=== PATIENT | female | born 1965 | race Caucasian/White ===

== ENCOUNTER → 2016-09-08 | Outpatient (CLI) | payer BC ==
[2015-10-21 14:20] VITALS: BP 100/61
--- NOTE | 2016-09-08 16:31 | KCIC ---
PROCEDURE Left wrist 3 views. HISTORY Left wrist pain. FINDINGS No fractures are identified. Joint spaces and alignment are maintained for patient age. There is minimal osteoarthritis at the 1st carpometacarpal joint. IMPRESSION - Minimal degenerative changes for patient age. Electronically signed by: José Cuevas (Sep 08, 2016 16:30:03)
== END | disposition home or self-care (01) ==
LOC: KCIC 15:51
PROVIDERS: ATTEND Family Medicine
DX: M18.12 Unilateral primary osteoarthritis of first carpometacarpal joint, left hand (principal)
CPT/HCPCS: 73110

== ENCOUNTER 2016-11-15 16:15 | Emergency (ER) | payer BC ==
[2016-11-15 16:38] VITALS: BP 105/64
--- NOTE | 2016-11-15 17:44 | PHYS DOC ---
Past Medical History Past Medical History: GERD Past Surgical History: Appendectomy Alcohol Use: None Drug Use: None Adult General Chief Complaint Chief Complaint: RIB PAIN [facility] HPI Patient is a 51 year old female with history of acid reflex who presents today with moderate right lateral rib pain that began a week and a half ago. Patient denies any trauma. She states she does a job where she was lifting and moving objects. She states she was seen by the PCP and was diagnosed with muscle strain. She states the pain has not improved, she states the PCP requested her to come to the ED for pain is not improving to get x-rays of her ribs. Patient denies any new injuries. She states the PCP put her on some pain medicine with ibuprofen in it and is not working. Off note she is allergic to aspirin and codeine. Review of Systems Review of Systems Constitutional: Denies fever or chills [] Eyes: Denies change in visual acuity, redness, or eye pain [] HENT: Denies nasal congestion or sore throat [] Respiratory: Right lateral rib pain Cardiovascular: No additional information not addressed in HPI [] GI: Denies abdominal pain, nausea, vomiting, bloody stools or diarrhea [] : Denies dysuria or hematuria [] Musculoskeletal: Denies back pain or joint pain [] Integument: Denies rash or skin lesions [] Neurologic: Denies headache, focal weakness or sensory changes [] Endocrine: Denies polyuria or polydipsia [] Allergies Allergies Allergies Coded Allergies Type Severity Reaction Last Updated Verified aspirin Allergy Unknown 10/21/15 Yes codeine Allergy Unknown 10/21/15 Yes Physical Exam Physical Exam Constitutional: Well developed, well nourished, no acute distress, non-toxic appearance. [] HENT: Normocephalic, atraumatic, bilateral external ears normal, oropharynx moist, no oral exudates, nose normal. [] Eyes: PERRLA, EOMI, conjunctiva normal, no discharge. [] Neck: Normal range of motion, no tenderness, supple, no stridor. [] Cardiovascular:Heart rate regular rhythm, no murmur [] Lungs & Thorax: Bilateral breath sounds clear to auscultation. Chest area with no obvious deformity, no ecchymosis anywhere on the chest area. Tenderness diffusely on palpation of the right lateral ribs mid axillary line approximately ribs 4,5, 6 Abdomen: Bowel sounds normal, soft, no tenderness, no masses, no pulsatile masses. [] Skin: Warm, dry, no erythema, no rash. [] Back: No tenderness, no CVA tenderness. [] Extremities: No tenderness, no cyanosis, no clubbing, ROM intact, no edema. [] Neurologic: Alert and oriented X 3, normal motor function, normal sensory function, no focal deficits noted. [] Psychologic: Affect normal, judgement normal, mood normal. [] Current Patient Data Vital Signs Vital Signs Date Time Temp Pulse Resp B/P Pulse Ox O2 Delivery O2 Flow Rate FiO2 11/15/16 16:38 97.7 73 16 100 Room Air 97.7 EKG EKG [] Radiology/Procedures Radiology/Procedures [] Course & Med Decision Making Course & Med Decision Making Pertinent Labs and Imaging studies reviewed. (See chart for details) Patient is in the ED complaining of rib pain for 1-1/2 weeks. 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 She was seen by the PCP and was diagnosed with muscle strain. She presents today stating the PCP requested her to come to the ED to get x-rays if her pain is not improving, right rib/chest PA x-rays interpreted by Dr. Diego and negative for any acute findings. Patient was discharged with Robaxin. She was provided a note for work not to lift anything heavier than a 30 pounds for one week. She is to follow-up with her own PCP in one week. Dragon Disclaimer Dragon Disclaimer This electronic medical record was generated, in whole or in part, using a voice recognition dictation system. Departure Departure Impression: Primary Impression: Muscle strain of chest wall Disposition: HOME, SELF-CARE Condition: STABLE Referrals: TRISTEN ROD (PCP) Follow-up with your doctor next week Patient Instructions: Muscle Strain Additional Instructions: You were seen for rib pain suspicious for muscle strain. We sent you home with muscle relaxants, use them as prescribed. Follow-up with your doctor next week. Come back to the ED if symptoms worsen. Scripts Methocarbamol (Robaxin-750)750 Mg Tablet1 Tab PO TID #25 TAB Prov:LILLIANA OMALLEY [employer] 11/15/16 Problem Qualifiers Primary Impression: Muscle strain of chest wall Encounter type: initial encounter Qualified Code: S29.011A - Strain of muscle and tendon of front wall of thorax, initial encounter LILLIANA OMALLEY [employer] Nov 15, 2016 17:44
[2016-11-15] MEDS ORDERED: METH-38 PO (17:52)
--- NOTE | 2016-11-16 11:05 | RAD ---
Right rib series to include a PA chest radiograph 11/15/2016 Clinical history: Lower right rib pain for 3 days. Injury at work. A PA digital radiograph of the chest was obtained. Two AP and an oblique digital radiographs of the right ribs were obtained. Comparison is made to a CT scan of the chest dated 02/19/2007. The cardiac silhouette is normal in size. The thoracic aorta is minimally tortuous. No acute pulmonary infiltrate is seen. No pleural effusion or pneumothorax is noted. Degenerative changes are seen involving the thoracic spine. Very mild S-shaped curvature of the thoracolumbar spine is noted. No right-sided rib fracture is seen. Impression: No right-sided rib fracture is seen.
== END 2016-11-15 17:58 | disposition home or self-care (01) ==
LOC: ER 16:15
DX: S29.011A Strain of muscle and tendon of front wall of thorax, initial encounter (principal); K21.9 Gastro-esophageal reflux disease without esophagitis; Z90.49 Acquired absence of other specified parts of digestive tract; Z88.5 Allergy status to narcotic agent; Z88.6 Allergy status to analgesic agent; X50.0XXA Overexertion from strenuous movement or load, initial encounter; Y93.89 Activity, other specified; Y99.8 Other external cause status; Y92.89 Other specified places as the place of occurrence of the external cause
CPT/HCPCS: 71101; 99284

== ENCOUNTER 2017-05-14 14:10 | Emergency (ER) | payer BC ==
[~2017-05-14] VITALS: Ht 172.7 cm; Wt 77.1 kg
[~2017-05-14 14:10] MED LIST: METH-38 PO
[2017-05-14 14:45] VITALS: BP 122/70
--- NOTE | 2017-05-14 15:10 | PHYS DOC ---
Past Medical History Past Medical History: GERD Past Surgical History: Appendectomy Alcohol Use: None Drug Use: None Adult General Chief Complaint Chief Complaint: FLU SYMPTOM HPI HPI Patient is a 51 year old female presents to the ED complaining of cough x 3 days. States she woke up with cough, productive. Associated symptoms include sore throat, body aches and rhinorrhea. Patient is a pack a day smoker. States sick contacts at home with similar symptoms. Denies chest pain, shortness of breath, dizziness, weakness, syncope or fever. Review of Systems Review of Systems Constitutional: Denies fever or chills [] Eyes: Denies change in visual acuity, redness, or eye pain [] HENT: Complains of rhinorrhea and sore throat.[] Respiratory: Complains of cough. Denies shortness of breath [] Cardiovascular: No additional information not addressed in HPI [] GI: Denies abdominal pain, nausea, vomiting, bloody stools or diarrhea [] : Denies dysuria or hematuria [] Musculoskeletal: Denies back pain or joint pain [] Integument: Denies rash or skin lesions [] Neurologic: Denies headache, focal weakness or sensory changes [] Endocrine: Denies polyuria or polydipsia [] Current Medications Current Medications Current Medications Medications (Trade) Dose Ordered Sig/Arpit Start Time Stop Time Status Last Admin Dose Admin Acetaminophen/ Hydrocodone Bitart (Lortab 5/325) 1 tab 1X ONCE 05/14/17 15:45 05/14/17 15:46 DC 05/14/17 15:43 1 TAB Albuterol/ Ipratropium (Duoneb) 3 ml 1X ONCE 05/14/17 15:45 05/14/17 15:46 DC 05/14/17 15:15 3 ML Ceftriaxone Sodium (Rocephin Im) 1 gm 1X ONCE 05/14/17 16:30 05/14/17 16:31 DC 05/14/17 16:30 1 GM Methylprednisolone Sodium Succinate (SOLU-Medrol 125MG VIAL) 125 mg 1X ONCE 05/14/17 15:45 05/14/17 15:46 DC 05/14/17 15:41 125 MG Allergies Allergies Allergies Coded Allergies Type Severity Reaction Last Updated Verified aspirin Allergy Unknown 10/21/15 Yes codeine Allergy Unknown "fidgety" 05/14/17 Yes Physical Exam Physical Exam Constitutional: Well developed, well nourished, no acute distress, non-toxic appearance. [] HENT: Normocephalic, atraumatic, bilateral external ears normal, oropharynx moist, no oral exudates, nose normal. [] Eyes: PERRLA, EOMI, conjunctiva normal, no discharge. [] Neck: Normal range of motion, no tenderness, supple, no stridor. [] Cardiovascular:Heart rate regular rhythm, no murmur [] Lungs & Thorax: MILD WHEEZING BILATERALLY. Bilateral breath sounds. [] Abdomen: Bowel sounds normal, soft, no tenderness, no masses, no pulsatile masses. [] Skin: Warm, dry, no erythema, no rash. [] Back: No tenderness, no CVA tenderness. [] Extremities: No tenderness, no cyanosis, no clubbing, ROM intact, no edema. [] Neurologic: Alert and oriented X 3, normal motor function, normal sensory function, no focal deficits noted. [] Psychologic: Affect normal, judgement normal, mood normal. [] Current Patient Data Vital Signs Vital Signs Date Time Temp Pulse Resp B/P (MAP) Pulse Ox O2 Delivery O2 Flow Rate FiO2 05/14/17 15:43 18 98 Room Air 05/14/17 14:45 99.1 83 99.1 Lab Values Laboratory Tests Test 05/14/17 14:48 05/14/17 16:00 Influenza Type A Antigen Negative (NEGATIVE) Influenza Type B Antigen Negative (NEGATIVE) Group A Streptococcus Rapid Negative (NEGATIVE) EKG EKG [] Radiology/Procedures Radiology/Procedures PROCEDURE: CHEST PA & LATERAL Indication cough. PA and lateral views of the chest were obtained. Frontal and lateral views of the chest were obtained. Comparison is made to a study 11/15/2016. The heart and pulmonary vessels appear normal. On the frontal view there is a minimal patchy infiltrate at the left lung base which is not readily apparent on the study 11/15/2016. The right lung is clear. There is no pleural fluid. There is no pneumothorax. IMPRESSION: Probable patchy infiltrate in the left lower lobe.[] Course & Med Decision Making Course & Med Decision Making Pertinent Labs and Imaging studies reviewed. (See chart for details) []Discussed imaging findings with patient. Patient's wheezing improved after breathing treatment. States she is feeling much better. Vitals stable, NAD. Solumedrol and Rocephin given in ED. Will discharge with antibiotics, steroids and an inhaler. Discussed follow-up with PCP in 1-2 days. Discussed reasons to return to the ED. Patient understands and agrees with plan. Emiliano Disclaimer Emiliano Disclaimer This electronic medical record was generated, in whole or in part, using a voice recognition dictation system. Departure Departure Impression: Primary Impression: Pneumonia Disposition: 01 HOME, SELF-CARE Condition: IMPROVED Referrals: TRISTEN ROD (PCP) Patient Instructions: Pneumonia, Adult Scripts Albuterol Sulfate (PROAIR HFA INHALER) 8.5 Gm Hfa.aer.ad 1 PUFF INH PRN Q6HRS Y for SHORTNESS OF BREATH, #1 INHALER 0 Refills Prov: KEYSHA CONNOLLY 05/14/17 Prednisone (PREDNISONE) 20 Mg Tablet 2 TAB PO DAILY for 5 Days, #10 TAB Prov: KEYSHA CONNOLLY 05/14/17 Azithromycin (AZITHROMYCIN TABLET) 250 Mg Tablet 1 PKG PO UD, #6 TAB Prov: KEYSHA CONNOLLY 05/14/17 KEYSHA CONNOLLY May 14, 2017 15:10
[2017-05-14] MEDS ORDERED: IPRATRPIUM/ALBUTEROL 0.5/2.5MG 3 ML NEBU. NEB ONE (15:45)
[2017-05-14] MEDS ORDERED: methylPREDNISolone SOD SUCC PF 125 MG/2 ML VIAL. IM ONE (15:45)
[2017-05-14] MEDS ORDERED: HYDROcodone/APAP 5/325MG 1 TAB TABLET PO ONE (15:45)
--- NOTE | 2017-05-14 15:52 | RAD ---
Indication cough. PA and lateral views of the chest were obtained. Frontal and lateral views of the chest were obtained. Comparison is made to a study 11/15/2016. The heart and pulmonary vessels appear normal. On the frontal view there is a minimal patchy infiltrate at the left lung base which is not readily apparent on the study 11/15/2016. The right lung is clear. There is no pleural fluid. There is no pneumothorax. IMPRESSION: Probable patchy infiltrate in the left lower lobe.
[2017-05-14 16:03] LABS: OBC FLU VALID
[2017-05-14] MEDS ORDERED: AZIT250T6 PO (16:08)
[2017-05-14] MEDS ORDERED: PRED20TA PO (16:08)
[2017-05-14] MEDS ORDERED: PROAIR HFA8.5 GM INH (16:08)
[2017-05-14] MEDS ORDERED: cefTRIAXone IM 1 GM VIAL IM ONE ×3 (16:24→16:45)
[2017-05-15 10:32] LABS: NEGATIVE OBC STREP NEG; POSITIVE OBC STREP POS
== END 2017-05-14 16:15 | disposition home or self-care (01) ==
LOC: ER 14:10
DX: J18.9 Pneumonia, unspecified organism (principal); K21.9 Gastro-esophageal reflux disease without esophagitis; F17.200 Nicotine dependence, unspecified, uncomplicated; Z88.5 Allergy status to narcotic agent; Z88.6 Allergy status to analgesic agent
CPT/HCPCS: 71020; 87070; 87804; 87880; 94250; 94640; 96372; 99285; J0696; J2930; J7620

== ENCOUNTER → 2017-05-21 | Outpatient (CLI) | payer BC ==
[2017-05-14 14:45] VITALS: BP 122/70
[~2017-05-21] MED LIST changes: +AZIT250T6 PO; +PRED20TA PO; +PROAIR HFA8.5 GM INH
--- NOTE | 2017-05-21 14:58 | KCIC ---
EXAM: Chest, 2 views. HISTORY: Lobar pneumonia. Cough. Cigarette smoking. COMPARISON: None. FINDINGS: Frontal and lateral views of the chest are obtained. There is no infiltrate, effusion or pneumothorax. The heart is normal in size. There is a suspected calcified granuloma overlying the left lower lobe. IMPRESSION: No acute pulmonary finding. Electronically signed by: Anitha Mejia MD (05/21/2017 2:55 PM) [email or web address]
== END | disposition home or self-care (01) ==
LOC: KCIC 14:32
PROVIDERS: ATTEND Family Medicine
DX: J18.1 Lobar pneumonia, unspecified organism (principal); F17.210 Nicotine dependence, cigarettes, uncomplicated
CPT/HCPCS: 71020

== ENCOUNTER → 2018-05-11 | Outpatient (CLI) | payer BC ==
--- NOTE | 2018-05-11 16:01 | KCIC ---
Indications: Cervicalgia with bilateral radiculopathy for 2 months. No known injury. Five-view cervical spine series: Grade 1 anterolisthesis of T3-4 and to lesser extent C2-3 and C4-5 is seen. Anterolisthesis of C3-4 measures 4 mm. No acute fracture or discitis or osteolytic process or prevertebral soft tissue swelling is evident. There is narrowing of the right neural foramina at C4-5 and C5-6 and the left neural foramina at C4-5 and C5-6. Facet joints are normally aligned otherwise. There is moderate degenerative disc space narrowing and mild degenerative endplate spurring at C5-C6. There is mild degenerative endplate spurring and disc space narrowing at C4-5. IMPRESSION: Degenerative spondylolisthesis and degenerative spondylosis. 2 view thoracic spine series: No compression fracture or discitis or osteolytic process is seen. IMPRESSION: No acute compression fracture. Five-view lumbar spine series: No scoliotic curvature is evident. The transverse processes are intact. No compression fracture or discitis or osteolytic process is seen. No anterolisthesis is evident. No spondylolysis is evident. No significant degenerative disc space narrowing or endplate spurring of the lumbar spine is seen. There is mild degenerative disc space narrowing at L5-S1. IMPRESSION: No acute compression fracture. Electronically signed by: Ld Saha MD (05/11/2018 3:57 PM) [facility]
== END | disposition home or self-care (01) ==
LOC: KCIC 14:46
PROVIDERS: ATTEND Family Medicine
DX: M47.22 Other spondylosis with radiculopathy, cervical region (principal); M43.12 Spondylolisthesis, cervical region; M51.37 Other intervertebral disc degeneration, lumbosacral region
CPT/HCPCS: 72050; 72072; 72110